=== PATIENT | female | born 1945 | race Caucasian/White ===

== ENCOUNTER 2023-07-05 17:09 | Emergency (ER) | payer OTHER, SELFPAY ==
[2023-07-05 17:09] VITALS: BMI 37.3
[2023-07-05 17:16] VITALS: BP 129/71
[2023-07-05 17:47] LABS: % Basophils 0.5 % (0-2); % Eosinophils 0.5 % (0-6); % Immature Granulocytes 0.3 % (0-0.5); % Lymphocytes 7.2 % (20.5-51.1); % Monocytes 5.5 % (1.7-9.3); Absolute Basophils 0.1 10^3/uL (0-0.2); Absolute Eosinophils 0.1 10^3/uL (0-0.7); Absolute Lymphocytes 0.8 10^3/uL (1.2-3.4); Absolute Monocytes 0.7 10^3/uL (0.1-0.6); Absolute Neutrophils 10.1 10^3/uL (1.4-6.5); Hematocrit 43.9 % (37.0-47.0); Hemoglobin 14.6 g/dL (12.0-16.0); Mean Corp Hgb Conc. 33.3 g/dL (33.0-37.0); Mean Corpuscular Hgb 29.8 pg (27.0-31.0); Mean Corpuscular Volume 89.6 fL (81.0-99.0); Mean Platelet Volume 10.3 fL (7.4-10.4); Nucleated Red Blood Cells % 0 %; Platelet Count 355 10^3/uL (130-400); Red Cell Dist. Width 14.1 % (11.5-14.5); White Blood Cell Count 11.7 10^3/uL (4.8-10.8)
[2023-07-05 17:59] LABS: ALT (SGPT) 17 U/L (0-35); AST (SGOT) 30 U/L (14-36); Albumin 3.6 g/dl (3.5-5.0); Alkaline Phosphatase 173 U/L (38-126); Blood Urea Nitrogen 17 mg/dl (7-17); Calcium 9.2 mg/dl (8.4-10.2); Carbon Dioxide 26 mmol/L (22-30); Chloride 102 mmol/L (98-107); Glucose 168 mg/dl (70-99); Lipase 115 U/L (23-300); Potassium 4.5 mmol/L (3.5-5.1); Sodium 136 mmol/L (135-145); Total Bilirubin 1.6 mg/dl (0.2-1.3); Total Protein 6.6 g/dl (6.3-8.2); eGFR > 60.00
[2023-07-05 20:09] VITALS: BP 141/75
[2023-07-05 21:00] VITALS: BP 122/79
--- NOTE | 2023-07-05 21:32 | ED.GENMED ---
Addendum entered and electronically signed by Niranjan Snider DO 07/06/23 02:35:
Update patient now awake states she still feels nauseous and weak, now she is wonder if she should have testing for COVID or flu although admittedly she states she would not take the treatment due to her prior history, she does have some family can
come and get her encouraged her to drink a lot of fluids use Tylenol at home
Original Note:
History of Present Illness
General
Chief Complaint: Abdominal Symptoms
Source: patient
Exam Limitations: none
Time Seen by Provider: 07/05/23 21:17
Nursing documentation reviewed up to this point in time: agreed with
Travel History
Have you had any contact with someone who has COVID-19?: No
Do you have any symptoms of coronavirus? Fever > 100 degrees, chills, cough, shortness of breath, sore throat, loss of taste or smell, muscle aches, or headache?: No
History of Present Illness
History of Present Illness:
Patient is very pleasant 77-year-old female history of Guillain Das� and asthma presents with fatigue nausea for about a week no fever no chills she is concerned she could have pneumonia, no dysuria frequency, has some increased global weakness, no
chest pain or shortness of breath she does not get COVID or flu shots, states she would not want to have a treatment for them, she has a history of DVT PE she is on Eliquis has not had her evening dose
Past History
Past History
ED Past Medical History: Hypercholesterolemia, Hypothyroidism and Other (Guillain-Das�, reactive airway disease)
ED Past Surgical History: Appendectomy, Cholecystectomy and Gynecological
Patient has exhibited threatening behavior?: No
PSI?: No
Social History
Tobacco: Non-smoker
Alcohol: None
Drug: None
Living: alone
Review of Systems
Review of Systems
All Other Systems: Not applicable
Constitutional: Reports fatigue; Denies fever
EENT: Reports no symptoms
Respiratory: Denies cough or trouble breathing
Cardiac: Denies chest pain
ABD/GI: Reports nausea; Denies abdominal pain
: Reports no symptoms
Musculoskeletal: Reports no symptoms
Skin: Reports no symptoms
Neurological: Reports weakness; Denies dizzy
Phy Exam
Physical Exam
Physical Exam:
Physical Exam
General: no apparent distress, not acutely ill
Neck: No jaundice
Heart: s1/s2 regular rate and rhythm, no murmur. equal radial pulses.
Lungs: No wheezing
Abdomen: Nontender
Neuro: alert and oriented. no focal neurological deficits
Skin: no rash
Psychiatric: well kept. interactive and cooperative
Extremities: no edema. no calf tenderness.
Course
Orders/Labs/Results
Orders:
Orders
07/05/23 17:19
EKG [Electrocardiogram (*1)] Urgent
Reason for Study: Fatigue / Weakness
EKG- Treatment ONCE
07/05/23 17:29
Complete Blood Count/With Diff Urgent
Comprehensive Metabolic Panel Urgent
Lipase Urgent
07/05/23 21:24
0.9% Sodium Chloride 500 ml [Nss] 500 ml IV BOLUS
Ondansetron Injectable [Zofran] 4 mg IV NOW STA
CR Chest - 2 Views Urgent
Comment:
Reason For Exam: faigutre
07/05/23 21:40
Troponin I Urgent
07/05/23 23:06
Ondansetron Injectable [Zofran] 4 mg IV NOW STA
Abnormal Lab Results
07/05/23
17:29
WBC 11.7 H 10^3/uL
(4.8-10.8)
Absolute Neuts (auto) 10.1 H 10^3/uL
(1.4-6.5)
Absolute Lymphs (auto) 0.8 L 10^3/uL
(1.2-3.4)
Absolute Monos (auto) 0.7 H 10^3/uL
(0.1-0.6)
Neutrophils % 86.0 H %
(42.2-75.2)
Lymphocytes % 7.2 L %
(20.5-51.1)
Glucose 168 H mg/dl
(70-99)
Total Bilirubin 1.6 H mg/dl
(0.2-1.3)
Alkaline Phosphatase 173 H U/L
(38-126)
07/05/23 17:29
07/05/23 17:29
Vital Signs
Initial and Last Documented VS:
Initial Vital Signs
Temp Pulse Resp BP Pulse Ox
99.2 F 91 22 129/71 97
07/05/23 17:16 07/05/23 17:16 07/05/23 17:16 07/05/23 17:16 07/05/23 17:16
Last Documented Vital Signs
Temp Pulse Resp BP Pulse Ox
99.2 F 91 22 115/67 96
07/05/23 17:16 07/05/23 17:16 07/05/23 17:16 07/06/23 00:00 07/06/23 00:00
MDM/Problems Addressed
Differential Diagnosis Includes:
Viral syndrome dehydration pneumonia
MDM/Problems Addressed:
Fatigue nausea
Chronic conditions affecting care:
Guillain-Das� unimmunized asthma DVT PE
*Critical Care Note
Total Time (30-74mins, 75-104mins- exclusive of procedures): Not Applicable
Update Note
Update Note:
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
1110, patient looks well labs noted states she still feels nauseous will redose her on Zofran give her some p.o. fluids
1:10 AM patient resting comfortably no acute distress
ED Attending Note
-
Portions of this chart may have been created with voice recognition software.� Occasional wrong word or��sound alike� substitutions may have occurred due to the inherent limitations of voice recognition software.
Discharge Plan
Departure
Patient Disposition: Home (Routine Discharge)
Date of Disposition: 07/06/23
Time of Disposition: 01:12
Patient with high blood pressure during this ER visit?: No
Condition: Good
Discharge Problem:
Nausea
Instructions: Nausea and Vomiting, Adult (DC), Wolfe Diet
Prescriptions:
No Action
atorvastatin 10 MG tablet
10 mg PO HS
levothyroxine 75 mcg tablet
75 mcg PO DAILY
cholecalciferol (vitamin D3) 25 mcg (1,000 unit) Tablet
25 mcg PO DAILY
Eliquis 5 MG tablet
5 mg PO BID
Rx Instructions:
Take 10mg twice a day through morning 06/15/21 then take 5mg twice a day starting evening 06/15/21
albuterol sulfate 90 mcg/actuation Hfa Aerosol Inhaler
2 puff INHALATION R Q6HPRN PRN (Reason: sob/wheezing)
torsemide 20 mg tablet
20 mg PO Q48H
potassium chloride 20 mEq tablet,ER particles/crystals
20 meq PO DAILY
prednisone 2.5 mg tablet
7.5 mg PO DAILY
acetaminophen 500 mg Tablet
1,000 mg PO Q6H PRN (Reason: mild pain/fever)
Referrals:
Tabatha White MD [Family Provider] - Next open appointment
Activity Restrictions/Additional Instructions:
Tylenol as needed for fever, Zofran as needed for nausea or vomiting
Interventions
Interventions:
*Risk Screen - Suicide Last Done: 07/05/23 17:14
*General Assessment Last Done: 07/05/23 17:14
*Neglect/Abuse Screening Last Done: 07/05/23 17:14
ED- Fall Risk Assessment Last Done: 07/05/23 20:23
*ED COVID-19 Vaccine History Last Done: 07/05/23 20:21
LX-Etjjry-Yxuufwyipg Assessment Last Done: 07/05/23 20:22
[2023-07-05] MEDS: NSS 500 IV (21:38)
[2023-07-05] MEDS: ZOFRAN 4 MG IV ×2 (21:39→23:34)
[2023-07-05 23:00] VITALS: BP 108/73
[2023-07-06] VITALS: BP 115/67
[2023-07-06 01:00] VITALS: BP 103/60
[2023-07-06 02:00] VITALS: BP 120/56
[2023-07-06 03:00] VITALS: BP 142/79
[2023-07-06 03:34] LABS: COVID-19 Antigen Negative (Negative)
== END 2023-07-06 03:33 | disposition home or self-care (01) ==
LOC: EMR 17:09
PROVIDERS: Emergency Medicine; EMERGENCY PHYSICIAN Emergency Medicine; FAMILY PHYSICIAN Internal Medicine
DX: R11.0 Nausea (principal); R53.83 Other fatigue; R53.1 Weakness; J45.909 Unspecified asthma, uncomplicated; Z11.52 Encounter for screening for COVID-19; Z86.718 Personal history of other venous thrombosis and embolism; Z79.01 Long term (current) use of anticoagulants
CPT/HCPCS: 99285; 96374; 96361; 96376; 71046; 80053; 83690; 84484; 85025; 87502; 87811; 93005

== ENCOUNTER 2023-07-10 17:10 | Inpatient (IN) | payer OTHER, SELFPAY ==
[2023-07-10] VITALS (9 sets, daily range): BP systolic 91–125; BP diastolic 51–64; BMI 36.2; BMI 36.8
--- NOTE | 2023-07-10 12:29 | ED.GENMED ---
History of Present Illness
General
Chief Complaint: Fainting Sensation
Source: patient
Time Seen by Provider: 07/10/23 12:19
Travel History
Have you had any contact with someone who has COVID-19?: No
Do you have any symptoms of coronavirus? Fever > 100 degrees, chills, cough, shortness of breath, sore throat, loss of taste or smell, muscle aches, or headache?: No
History of Present Illness
History of Present Illness:
77-year-old female presents complaining of poor appetite, generalized fatigue which has been present for the past couple weeks. Patient states she feels like she has just no energy to do anything. She denies any fever. She denies chest pain or
shortness of breath.
Past History
Past History
ED Past Medical History: Hypercholesterolemia, Hypothyroidism and Other (Guillain-Das�, reactive airway disease)
ED Past Surgical History: Appendectomy, Cholecystectomy and Gynecological
Patient has exhibited threatening behavior?: No
PSI?: No
Social History
Tobacco: Non-smoker
Alcohol: None
Drug: None
Living: alone
Phy Exam
Physical Exam
Physical Exam:
General: Awake, Alert, Oriented X3. No acute distress. Appears chronically ill
Vitals: Tachycardic
Head: Atraumatic
Eyes: Pupils equal, EOMI
Throat: Airway intact, no exudates
Neck: Trachea midline
Lungs: Clear and equal b/l
Heart: Regular rate, no murmurs
Abd: Soft, Nontender, No pulsatile mass
Neuro: nonfocal
Skin: Warm, dry, no rash
Extremities: pulses equal b/l, no edema
Course
Orders/Labs/Results
Orders:
Orders
07/10/23 12:27
0.9% Sodium Chloride 500 ml [Nss] 500 ml IV BOLUS
07/10/23 12:28
Urinalysis Reflex To Culture Urgent
07/10/23 12:54
Electrocardiogram (*1) Urgent
Reason for Study: Bradycardia / Tachycardia
EKG- Treatment ONCE
07/10/23 13:08
Diltiazem 125 mg/125 ml Nss [Cardizem] 125 mg in 125 ml IV NOW
Initial dose in mg/hr, then titrate:: 5
Titrate to keep:: Heart rate 80-100 bpm
Titrate by mg/hr:: 5 mg/hr
Frequency of titrations (minutes):: 15
Maximum dose in mg/hr:: 15
Diltiazem HCl [Cardizem] 15 mg IV NOW STA
CR Chest Portable - 1 View Urgent
Comment:
Reason For Exam: sob
Reason Study Needs to be Portable: Unable to Transport
07/10/23 13:14
Complete Blood Count/With Diff Urgent
07/10/23 14:00
Comprehensive Metabolic Panel Urgent
Magnesium Urgent
Phosphorus Urgent
TSH Reflex To Free T4 Urgent
07/10/23 14:11
Diltiazem HCl [Cardizem] 20 mg IV NOW STA
07/10/23 14:52
Electrocardiogram (*1) Urgent
Reason for Study: Bradycardia / Tachycardia
EKG- Treatment ONCE
07/10/23 15:06
Apixaban [Eliquis] 5 mg PO NOW STA
Abnormal Lab Results
07/10/23 07/10/23
13:14 14:00
Absolute Monos (auto) 1.3 H 10^3/uL
(0.1-0.6)
Monocytes % 14.6 H %
(1.7-9.3)
Sodium 132 L mmol/L
(135-145)
BUN 19 H mg/dl
(7-17)
Glucose 102 H mg/dl
(70-99)
Total Bilirubin 1.9 H mg/dl
(0.2-1.3)
Alkaline Phosphatase 147 H U/L
(38-126)
Total Protein 5.9 L g/dl
(6.3-8.2)
Albumin 2.9 L g/dl
(3.5-5.0)
07/10/23 13:14
07/10/23 14:00
Vital Signs
Initial and Last Documented VS:
Initial Vital Signs
Temp Pulse Resp BP Pulse Ox
98.0 F 109 18 125/61 99
07/10/23 11:37 07/10/23 11:37 07/10/23 11:37 07/10/23 11:37 07/10/23 11:37
Last Documented Vital Signs
Temp Pulse Resp BP Pulse Ox
98.0 F 84 18 99/59 98
07/10/23 11:37 07/10/23 15:41 07/10/23 11:37 07/10/23 15:41 07/10/23 15:41
MDM/Problems Addressed
Differential Diagnosis Includes:
Anemia, renal failure, dehydration
MDM/Problems Addressed:
Patient presents with near syncope and weakness. EKG shows the patient is in atrial fibrillation with rapid ventricular response. Her rate is quite fast over 200. Labs are unremarkable really. EKG appears to show episodes of wider QRS which I
believe is a rate related bundle branch block as again the patient's rate is irregular. Cardizem bolus is given with improvement in her rate. She continues to be in A-fib or a flutter with heart rates in the 130s. Cardiology consultation
requested. Patient remitted to the hospital service.
*Radiology
Radiology exam reviewed: radiology read reviewed
*Pulse Oximetry
Patient hypoxic: no
*EKG
Interpreted by ED Provider?: Yes
Interpretation: abnormal
Heart Rate: 206
Rate: tachycardiac
Rhythm: a-fib
Ischemia: non-specific ST changes
*Computational Linguist Interpretation
Rate: tachycardiac
Heart Rate: 206
Rhythm: a-fib
*Critical Care Note
Total Time (30-74mins, 75-104mins- exclusive of procedures): 35 min
comment:
Critical care statement: A total of 35 minutes of critical care time was provided for this patient. This includes management of unstable vital signs, evaluation of the patient at bedside, reviewing the patient's pertinent medical records, discussion
with consultants, review of old EKGs and review of pertinent medical records. This time with separate from time utilized to perform the aforementioned documented procedures
Data Reviewed
Further Testing Considered But Not Given:
Considered cardioversion but the patient was having periods of sinus rhythm between long periods of A-fib with rapid ventricular response. Therefore did not believe the patient would hold sinus rhythm if she did convert with electrical synchronized
cardioversion
ED Attending Note
-
Portions of this chart may have been created with voice recognition software.� Occasional wrong word or��sound alike� substitutions may have occurred due to the inherent limitations of voice recognition software.
Discharge Plan
Departure
Patient Disposition: Admit
Date of Disposition: 07/10/23
Time of Disposition: 15:52
Admit to: Telemetry
Presentation/result/management discussed w/ accepting MD/DO: Hospitalist
Condition: Fair
Discharge Problem:
Atrial fibrillation with RVR
Prescriptions:
No Action
atorvastatin 10 MG tablet
10 mg PO HS
levothyroxine 75 mcg tablet
75 mcg PO DAILY
cholecalciferol (vitamin D3) 25 mcg (1,000 unit) Tablet
25 mcg PO DAILY
Eliquis 5 MG tablet
5 mg PO BID
Rx Instructions:
Take 10mg twice a day through morning 06/15/21 then take 5mg twice a day starting evening 06/15/21
albuterol sulfate 90 mcg/actuation Hfa Aerosol Inhaler
2 puff INHALATION R Q6HPRN PRN (Reason: sob/wheezing)
torsemide 20 mg tablet
20 mg PO Q48H
potassium chloride 20 mEq tablet,ER particles/crystals
20 meq PO DAILY
prednisone 2.5 mg tablet
7.5 mg PO DAILY
acetaminophen 500 mg Tablet
1,000 mg PO Q6H PRN (Reason: mild pain/fever)
Referrals:
Tabatha White MD [Family Provider] -
Interventions
Interventions:
*Risk Screen - Suicide Last Done: 07/10/23 11:37
*General Assessment Last Done: 07/10/23 11:37
*Neglect/Abuse Screening Last Done: 07/10/23 11:37
*ED COVID-19 Vaccine History Last Done: 07/10/23 11:37
ED- Cardiac Assessment Last Done: 07/10/23 13:18
ED- Neurological Assessment Last Done: 07/10/23 13:18
[2023-07-10 13:25] LABS: % Basophils 0.6 % (0-2); % Eosinophils 1.1 % (0-6); % Immature Granulocytes 0.5 % (0-0.5); % Lymphocytes 22.3 % (20.5-51.1); % Monocytes 14.6 % (1.7-9.3); % Neutrophils 60.9 % (42.2-75.2); Absolute Basophils 0.1 10^3/uL (0-0.2); Absolute Eosinophils 0.1 10^3/uL (0-0.7); Absolute Monocytes 1.3 10^3/uL (0.1-0.6); Absolute Neutrophils 5.4 10^3/uL (1.4-6.5); Hematocrit 42.8 % (37.0-47.0); Hemoglobin 14.3 g/dL (12.0-16.0); Mean Corp Hgb Conc. 33.4 g/dL (33.0-37.0); Mean Corpuscular Hgb 29.9 pg (27.0-31.0); Mean Corpuscular Volume 89.5 fL (81.0-99.0); Nucleated Red Blood Cells % 0 %; Platelet Count 363 10^3/uL (130-400); Red Blood Cell Count 4.78 10^6/uL (4.20-5.40); Red Cell Dist. Width 13.7 % (11.5-14.5); White Blood Cell Count 8.8 10^3/uL (4.8-10.8)
[2023-07-10] MEDS: CARDIZEM 125 IV (13:26)
[2023-07-10] MEDS: CARDIZEM 15 MG IV (13:26)
[2023-07-10] MEDS: NSS 500 IV (13:31)
[2023-07-10] MEDS: CARDIZEM 20 MG IV (14:36)
--- NOTE | 2023-07-10 14:43 | PTCARENOTE ---
Pt found to be tachycardic. HR 140s - 200s. EKG obtained and resulted Atrial Fibrillation. Dr. Anglin at bedside. New order for Cardizem gtt with titration orders for maintain HR 80s - 100s. HR now 70s - 140s on shagger.
[2023-07-10 14:57] LABS: ALT (SGPT) 15 U/L (0-35); AST (SGOT) 32 U/L (14-36); Albumin 2.9 g/dl (3.5-5.0); Alkaline Phosphatase 147 U/L (38-126); Blood Urea Nitrogen 19 mg/dl (7-17); Calcium 8.7 mg/dl (8.4-10.2); Carbon Dioxide 25 mmol/L (22-30); Chloride 100 mmol/L (98-107); Estimated Creatinine Clearance 71 ml/min; Glucose 102 mg/dl (70-99); Magnesium 1.8 mg/dl (1.6-2.3); Phosphorus 3.1 mg/dl (2.5-4.5); Sodium 132 mmol/L (135-145); Total Bilirubin 1.9 mg/dl (0.2-1.3); Total Protein 5.9 g/dl (6.3-8.2); eGFR > 60.00
[2023-07-10 15:26] LABS: TSH Reflex To Free T4 1.92 uIU/ml (0.47-4.68)
--- NOTE | 2023-07-10 15:26 | CON.CAR ---
Addendum entered and electronically signed by Chinmay Mtz MD 07/10/23 16:47:
I saw and examined the patient.
The HUB LEAD's note was reviewed and I agree with the note.
Comment: 77 year old female (known to Dr. Varghese, her primary city magistrate), with HTN, HLD, chronic LE edema, prior PE, and NIDDM who presented with fatigue. She was seen in the ER 07/05/23 with weakness and nausea. Initial HRs were ~200, however,
with dilt gtt converted to NSR.
- cont dilt gtt overnight stop it tomorrow am at 6am and start dilt 180mg at 7 am
- Eliquis for AC
- she will likely have a non-ischemic myocardial injury 2/2 tachycardia, she is currently CP and has no symptoms
Original Note:
Consultation
Consultation Request
Date/Time Consultation Requested: 07/10/23 15:15
Date/Time Consultation Performed: 07/10/23 15:30
Requesting Provider: Dr. Anglin
Performing Provider: SARAH Dixon for Dr. Mtz
Reason for Consultation: Atrial fibrillation with RVR
Medical History
-
Chief Complaint: Fatigue
History of Present Illness:
Janette Morelos is a 77 year old female (known to Dr. Varghese, her primary city magistrate), with HTN, HLD, chronic LE edema, prior PE, and NIDDM who presented with fatigue. She was seen in the ER 07/05/23 with weakness and nausea. Influenza and COVID-19
were negative. She was hydrated and given Zofran and discharged home. She was in sinus rhythm at that time. She is currently in atrial fibrillation with rapid ventricular response. She denies chest pain and palpitations. She does endorse exertional
SOB at home. She appears to have a rate related LBBB.
Past Medical History
Past Medical History: Asthma, HTN, Hypercholesterolemia, NIDDM and Other (PE, RA, Guillain-[place], EBV)
Past Surgical History: Appendectomy, Cholecystectomy and Gynecological
Social History
Tobacco: Non-Smoker
Alcohol: None
Living: Alone
Employment: Retired
Family History
Family History: Reviewed & Not Pertinent
Allergies / Home Medications
Allergy/AdvReac Type Severity Reaction Status Date / Time
adhesive Allergy skin blows Verified 07/10/23 11:38
up
cephalexin monohydrate Allergy Vomiting Verified 07/10/23 11:38
[From Keflex]
iodine Allergy Swelling Verified 07/10/23 11:38
methotrexate Allergy Shortness Verified 07/10/23 11:38
of Breath
povidone-iodine Allergy Swelling Verified 07/10/23 11:38
shellfish derived Allergy Unknown Verified 07/10/23 11:38
Sulfa (Sulfonamide Allergy Unknown Verified 07/10/23 11:38
Antibiotics)
Medication Instructions Recorded Confirmed Type
atorvastatin 10 mg tablet 10 mg PO HS High cholesterol 07/19/15 07/05/23 History
albuterol sulfate 90 mcg/actuation 2 puff inhalation R Q6HPRN PRN 01/19/22 07/05/23 History
aerosol inhaler sob/wheezing
apixaban 5 mg tablet (Eliquis) 5 mg PO BID Blood clot 01/19/22 07/05/23 History
prevention/tx
cholecalciferol (vitamin D3) 25 25 mcg PO DAILY Supplement 01/19/22 07/05/23 History
mcg (1,000 unit) tablet
levothyroxine 75 mcg tablet 75 mcg PO DAILY Thyroid 01/19/22 07/05/23 History
acetaminophen 500 mg tablet 1,000 mg PO Q6H PRN mild pain/fever 07/05/23 07/05/23 History
potassium chloride 20 mEq 20 meq PO DAILY 07/05/23 07/05/23 History
tablet,extended release(part/cryst)
prednisone 2.5 mg tablet 7.5 mg PO DAILY 07/05/23 07/05/23 History
torsemide 20 mg tablet 20 mg PO Q48H 07/05/23 07/05/23 History
Review of Systems
-
History Source: Patient
All other systems: Negative unless noted
Constitutional: Fatigue
Respiratory: No Symptoms
Cardiac: No Symptoms
Abdomen/GI: No Symptoms
Physical Exam
Vital Signs
Temp Pulse Resp BP Pulse Ox
98.0 F 141 18 109/89 99
07/10/23 11:37 07/10/23 14:36 07/10/23 11:37 07/10/23 14:36 07/10/23 11:37
Lab Results
07/10/23 13:14
07/10/23 14:00
Physical Exam
General: Well Developed, Well Nourished, No Apparent Distress and Comfortable
HEENT: Normocephalic, Anicteric and Moist Mucous Membranes
Respiratory: Clear and Non Labored Respirations
Cardiac: S1/S2, Regular Rhythm and Peripheral Edema (trace ankle edema)
Breast: Deferred by me
GI: Soft, Non Tender, Non Distended and Normal Bowel Sounds
Rectal: Deferred by Provider
Genito-urinary: No Costovertebral Tender
Musculoskeletal: No Clubbing, No Cyanosis and No Edema
Skin: Dry
Neuro: AO x 3
Hematologic/Lymphatic: No Lymphadenopathy
Psych: Calm
Impression / Plan
-
Atrial fibrillation with RVR
-Back in sinus, she is going in and out of atrial fibrillation
-Oral Anticoagulation: Apixaban 5mg BID, she denies abnormal bleeding
-[id number]: score 5 (HTN, age 75 or more, Diabetes Mellitus, female gender)
-Hyperdynamic without valve disease on 2021 TTE, update
LBBB
-This appears to be rate related
LE edema, chronic, on Torsemide Q48H
Dyslipidemia, TC 153, HDL 56, LDL 72, TG 142
Type II DM, Hgba1c 5.8%
Prior PE, on apixaban
Obesity, BMI 36, she would benefit from weight loss
Data Reviewed
-
EKG: Report Reviewed by me (Atrial flutter with variable AV block, lateral T wave abnormality, rate 136)
Radiology: Report Reviewed by me (CXR: Increased right basilar atelectasis and/or pneumonia.)
Medical Tests (Nuc Med, Echo etc): Report Reviewed by me (Echocardiogram as above)
Labs: Labs Reviewed by me
Old Records: Reviewed
[2023-07-10] MEDS: ELIQUIS 5 MG PO (15:38)
--- NOTE | 2023-07-10 16:20 | HPS.HSE ---
Family Physician
-
Family Physician: Tabatha White
Chief Complaint
-
weakness
History of Present Illness
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 Symptoms have been lasting for the last
few weeks. Otherwise denies URI symptoms, fever, chills, chest pain, nausea, vomiting, shortness of breath. Vitals are 99/59, heart rate 84, initially 109 noted to have atrial flutter on EKG. Labs with sodium level of 132, bilirubin 1.9, alk phos
147. X-ray with increased right basilar atelectasis and/or pneumonia.
Medical History
Past Medical History
Past Medical History: Reports Other (see HPI)
Additional Past Medical History:
Guillain-Das�, COPD, arthritis, recurrent PE/DVT on chronic Eliquis 5 mg BID, hypothyroidism, HLD,
Past Surgical History: Reports Appendectomy, Cholecystectomy and Gynocological (hysterectomy)
Social History
Tobacco: Non-smoker
Alcohol: None
Living: Alone
Family History
Family History: Not pertinent
Allergies / Home Medications
Allergies reflects when Allergies were last updated in [facility].
Home Medications with original date entered in [facility]
Allergy/Medication List:
Allergies
Allergy/AdvReac Type Severity Reaction Status Date / Time
adhesive Allergy skin blows Verified 07/10/23 11:38
up
cephalexin monohydrate Allergy Vomiting Verified 07/10/23 11:38
[From Keflex]
iodine Allergy Swelling Verified 07/10/23 11:38
methotrexate Allergy Shortness Verified 07/10/23 11:38
of Breath
povidone-iodine Allergy Swelling Verified 07/10/23 11:38
shellfish derived Allergy Unknown Verified 07/10/23 11:38
Sulfa (Sulfonamide Allergy Unknown Verified 07/10/23 11:38
Antibiotics)
Home Medications
atorvastatin 10 mg tablet 10 mg PO HS High cholesterol 07/19/15
apixaban 5 mg tablet (Eliquis) 5 mg PO BID Blood clot prevention/tx 01/19/22
cholecalciferol (vitamin D3) 25 mcg (1,000 unit) tablet 25 mcg PO DAILY Supplement 01/19/22
levothyroxine 75 mcg tablet 75 mcg PO DAILY Thyroid 01/19/22
acetaminophen 500 mg tablet 1,000 mg PO Q6H PRN mild pain/fever 07/05/23
potassium chloride 20 mEq tablet,extended release(part/cryst) 20 meq PO DAILY 07/05/23
prednisone 2.5 mg tablet 7.5 mg PO DAILY 07/05/23
torsemide 20 mg tablet 20 mg PO Q48H@0800 07/05/23
Review of Systems
-
History Source: Patient
A 12 point ROS was completed and negative except as noted: Yes
Physical Exam
Vital Signs
Vital Signs
Temp Pulse Resp BP Pulse Ox
98.0 F 84 18 99/59 98
07/10/23 11:37 07/10/23 15:41 07/10/23 11:37 07/10/23 15:41 07/10/23 15:41
Physical Exam
General: Well Developed and Well Nourished
HEENT: NormoCephalic
Respiratory: Clear
Cardiac: S1/S2
GI: Non Tender
Musculoskeletal: No Clubbing
Skin: Warm
Neuro: Awake, Alert, Oriented and AO x 3
Hematologic/Lymphatic: No Lymphadenopathy
Psych: Calm
Laboratory Results
-
07/10/23 13:14
07/10/23 14:00
Laboratory Results
Total Bilirubin 1.9 mg/dl (0.2-1.3) H 07/10/23 14:00
AST 32 U/L (14-36) 07/10/23 14:00
ALT 15 U/L (0-35) 07/10/23 14:00
Alkaline Phosphatase 147 U/L (38-126) H 07/10/23 14:00
Data Reviewed
-
Diagnostic Radiology: Image Personally Visualized and interpreted and Report Reviewed by me
Lab Data: Labs Reviewed by me
Impression/Plan
-
IMPRESSION:
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 Noted to be in new onset A. Flutter on
EKG
PLAN:
# Atrial flutter
� Started on Cardizem, continue
� Switch to p.o. AV jef blockade as directed by cardiology
� Cardiology consulted
� Already on Eliquis, continue
� Follow-up troponins
� Follow-up TSH with reflex free T4
� Follow-up echo
#Weakness/lethargy
� Possibly secondary to atrial flutter
� Follow-up UA to ensure no evidence of UTI
� Follow-up TSH with reflex T4
� Follow-up SARS-CoV-2, influenza
#Hypothyroidism
Continue Synthroid
� Follow-up TFTs
#Arthritis, rheumatoid?
� On prednisone 7.5 mg daily, continue
� Should follow-up for taper outpatient
#Hyponatremia, mild
� Continue to monitor oh with resolution/resuscitation in setting of atrial flutter
#Transaminitis
� Follow complete abdominal ultrasound
� Low suspicion for acute intra-abdominal pathology
#Hyperlipidemia
#Hypertension
�Continue statin
� Continue torsemide
#DVT prophylaxis
� Eliquis
[2023-07-10 17:26] LABS: Troponin I 0.013 ng/ml
[2023-07-10 20:10] LABS: COVID-19 Antigen Negative (Negative)
[2023-07-10] MEDS: LIPITOR 10 MG PO (23:22)
[2023-07-11 00:05] LABS: Troponin I 0.015 ng/ml
--- NOTE | 2023-07-11 00:18 | PTCARENOTE ---
Pt rec'd at change of shift awake,alert no c/o pain. Sinus on telemetry with brief breaks to afib noted. Cardizem gtt continued at 5 mg/hr. Pt assisted oob to bsc where she passed moderate formed stool. troponin level drawn ,results pending. LAC
site painful to flush-removed.
call carroll placed within reach.
[2023-07-11 05:31] VITALS: BP 118/62
[2023-07-11 05:34] VITALS: BMI 36.8
[2023-07-11] MEDS: CARDIZEM CD 180 MG PO (05:59)
[2023-07-11] MEDS: SYNTHROID 75 MCG PO (06:03)
[2023-07-11 06:05] LABS: Hemoglobin 13.4 g/dL (12.0-16.0); Mean Corp Hgb Conc. 33.5 g/dL (33.0-37.0); Mean Corpuscular Volume 89.7 fL (81.0-99.0); Mean Platelet Volume 10.4 fL (7.4-10.4); Platelet Count 310 10^3/uL (130-400); Red Blood Cell Count 4.46 10^6/uL (4.20-5.40); Red Cell Dist. Width 13.8 % (11.5-14.5); White Blood Cell Count 9.2 10^3/uL (4.8-10.8)
--- NOTE | 2023-07-11 06:19 | PTCARENOTE ---
Pt reports having slept most of the night. Mostly sinus with some occ afib. po Cardizem given as ordered. Pt assisted oob to bsc then chair c/o feeling dizzy when in afib with rates 140, feeling better back in sinus.
[2023-07-11 06:27] LABS: Troponin I < 0.012 ng/ml
[2023-07-11 06:32] LABS: ALT (SGPT) 13 U/L (0-35); AST (SGOT) 28 U/L (14-36); Albumin 2.7 g/dl (3.5-5.0); Alkaline Phosphatase 142 U/L (38-126); Blood Urea Nitrogen 21 mg/dl (7-17); Calcium 8.7 mg/dl (8.4-10.2); Carbon Dioxide 22 mmol/L (22-30); Chloride 102 mmol/L (98-107); Estimated Creatinine Clearance 79 ml/min; Glucose 90 mg/dl (70-99); Magnesium 1.9 mg/dl (1.6-2.3); Potassium 4.3 mmol/L (3.5-5.1); Sodium 132 mmol/L (135-145); Total Bilirubin 1.9 mg/dl (0.2-1.3); Total Protein 5.5 g/dl (6.3-8.2); eGFR > 60.00
[2023-07-11 06:38] LABS: Urine Albumin 1+ (Neg - Trace); Urine Bilirubin 1+ (Negative); Urine Character Slightly Cloudy (Clear); Urine Color Yellow; Urine Glucose Negative (Negative); Urine Ketone 2+ (Negative); Urine Leukocyte 2+ (Negative); Urine Nitrite Positive (Negative); Urine Occult Blood 3+ (Negative); Urine Urobilinogen 3+ (Neg - 1+)
[2023-07-11 07:04] LABS: TSH Reflex To Free T4 1.66 uIU/ml (0.47-4.68)
[2023-07-11 07:07] VITALS: BP 107/74
[2023-07-11 07:39] LABS: Urine Mucus Many
[2023-07-11 07:40] LABS: Urine Amorphous Seen
[2023-07-11 07:43] LABS: Urine Bacteria Many (Negative)
[2023-07-11 07:47] LABS: Urine Triple Phosphate Crystal Seen
--- NOTE | 2023-07-11 08:15 | PTCARENOTE ---
Addendum entered by Madeline Salcido RN 07/11/23 11:45:
pt incontinent in chair, dark yellow urine, odorous. venus area excoriated. venus care performed.
Original Note:
pt received from previous RN, oriented, anxious. SR/Afib on the monitor. 2LNC, for patient comfort, 94% on RA. pt abdomen s/n, nausea at times w/ the afib. NPO for US Abd. pt states had BM yesterday. incontinent at times. PIV. see worklist for VS,
I&O, and assessment.
--- NOTE | 2023-07-11 08:23 | W.PN.CD ---
Today's Communication / Plan
-
Monitor as we convert from IV diltiazem to PO diltiazem.
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
Impression / Plan
-
Impression/Plan: 77 y/o female with COPD, HTN, HLD, chronic LE edema, PE and NIDDM admitted with new atrial fibrillation with RVR, converted to NSR
#Paroxysmal atrial fibrillation
-Currently in NSR.
-Rate control with diltiazem gtt, converted to diltiazem PO.
-CHADS2-Vasc = 5 (HTN, Age x2, DM, Female).
-Oral Anticoagulation: Apixaban 5mg BID.
#LBBB
-This appears to be rate related.
#LE edema
-Chronic, on Torsemide Q48H.
#Dyslipidemia
-Chronic, stable.
-TC 153, HDL 56, LDL 72, TG 142.
-Continue atorvastatin 10 mg daily.
#Type II DM
-Chronic, stable.
-Hgba1c 5.8%.
#Prior PE
-Apixaban.
#Obesity
-BMI 36
-She would benefit from weight loss (possibly GLP-1 analog).
Subjective/Interval History:
Converted to NSR.
Intermittent AF overnight on telemetry.
DATA:
TTE, 07/10/2023:
CONCLUSIONS
�Technically difficult study.
�Normal LV size and function with no regional wall motion abnormalities.
�Estimated ejection fraction of 60 to 65% by visual estimation.
�Mild concentric LVH.
�Normal-appearing RV size and function.
�No significant valvular disease.
�Compared to prior from January 19, 2022, new small to moderate pericardial
�effusion.
Physical Exam
Vital Signs/Labs
Vital Signs
Temp Pulse Resp BP Pulse Ox
36.4 C 97 18 118/62 96
07/11/23 07:07 07/11/23 07:07 07/11/23 07:07 07/11/23 05:31 07/11/23 07:07
07/09/23 07/10/23 07/11/23
11:59 11:59 11:59
Actual Weight 104.7 kg 103.5 kg
07/11/23 05:43
07/11/23 05:44
Magnesium 1.9 mg/dl (1.6-2.3) 07/11/23 05:44
LAB Results
07/10/23 07/10/23 07/10/23
16:51 18:41 23:31
Troponin I 0.013 Cancelled 0.015
07/11/23
05:43
Troponin I < 0.012
Physical Exam
Constitutional: No acute distress and Comfortable
EENT: Anicteric and Moist mucous membranes
Cardiovascular: Rhythm & rate is regular, JVD pressure is normal, Pedal edema present, S1S2 is normal and Murmur/rub/gallop absent
Respiratory: Respiratory effort normal, Lungs clear to auscul., Wheeze Absent, Crackles Absent and Rhonchi Absent
GI: Soft, Distention absent, Flat, Non tender and Normal bowel sounds
Neuro/Psych: AO x 3
Data Reviewed
-
Date of Service: July 11, 2023
Medical Decision Making: Reviewed Test Results, Independent Historian Assessment and Test Interpretation
EKG: Tracing Personally Visualized and interpreted and Report Reviewed by me
Echo: Tracing Personally Visualized and interpreted and Report Reviewed by me
X-Ray/CT/US/MRI/NUC/PET: Image Personally Visualized and interpreted and Report Reviewed by me
Labs: Labs Reviewed by me
Old Records: Reviewed
[2023-07-11] MEDS: VITAMIN D3 (cholecalciferol) 25 MCG PO (08:58)
[2023-07-11] MEDS: ELIQUIS 5 MG PO ×2 (08:58→19:56)
[2023-07-11] MEDS: DEMADEX 20 MG PO (08:58)
[2023-07-11] MEDS: DELTASONE 7.5 MG PO (08:58)
[2023-07-11] MEDS: KCL 20 MEQ PO (08:58)
[2023-07-11 10:17] LABS: Urine Albumin 1+ (Neg - Trace); Urine Bilirubin 2+ (Negative); Urine Character Very Cloudy (Clear); Urine Color Yellow; Urine Glucose Negative (Negative); Urine Ketone 2+ (Negative); Urine Leukocyte 2+ (Negative); Urine Nitrite Positive (Negative); Urine Occult Blood 2+ (Negative); Urine Specific Gravity 1.015 (<1.030); Urine Urobilinogen 4+ (Neg - 1+)
--- NOTE | 2023-07-11 10:30 | PTCARENOTE ---
pt back from US Abd, placed back to bed. straight cath'd per order, UA sent.
--- NOTE | 2023-07-11 10:38 | CM ---
Chart reviewed. Patient is independent of ADLS, lives at home in a 1st floor condo, 0 [address]SH[address], ambulates with a rollator. Patient is not current with VN, but is interested. Referral sent to [facility]. Recommended PT/OT evaluation. Plan is for the
patient to return home with [facility]. CM to follow
[2023-07-11 11:12] VITALS: BP 142/72
[2023-07-11 11:22] LABS: Urine Amorphous Seen; Urine Bacteria Many (Negative); Urine Mucus Moderate; Urine White Cell 50-60 /HPF (0-5)
[2023-07-11] MEDS: CARDIZEM CD 120 MG PO (13:01)
--- NOTE | 2023-07-11 13:06 | PTCARENOTE ---
incontinence care provided, OOB in chair. pt having frequent runs of Afib, HR 100-160s, Dr. Mtz aware. ordered Cardizem dose given.
[2023-07-11] MEDS: CARDIZEM 125 IV (15:04)
[2023-07-11 15:05] VITALS: BP 100/59
--- NOTE | 2023-07-11 15:56 | W.PN.HOSP.TC ---
Today's Communication/Plan
-
cardizem ggt, cardizem po
ceftriaxone, f/u cultures
Assessment / Plan
Assessment / Plan
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
reverted to sinus and now back to Afib with RVR.
# Atrial Fibrillation
� Started on Cardizem drip, refractory to Cardizem p.o.
� Increase Cardizem, and possibly add additional AV jef blockade if necessary
� Cardiology consulted
� Echo with EF 60 to 65%, mild concentric LVH
� Already on Eliquis, continue
� Troponins negative
� TSH normal
#Weakness/lethargy
� Possibly secondary to arrhythmia versus UTI
�Treat above, arrhythmia/UTI
#UTI
� Start ceftriaxone
� Follow cultures
#Hypothyroidism
Continue Synthroid
�TSH within normal notes
#Arthritis, rheumatoid?
� On prednisone 7.5 mg daily, continue
� Should follow-up for taper outpatient, has not followed up for many years
#Hyponatremia, mild
� Continue to monitor with resuscitation
#Transaminitis
�us unremarkable
� Low suspicion for acute intra-abdominal pathology
#Hyperlipidemia
#Hypertension
�Continue statin
� Continue torsemide
#DVT prophylaxis
� Eliquis
Anticipated Discharge: 24 - 48 hours
Subjective/Interval History
-
Date of Service: July 11, 2023
still in afib
Objective Data
-
Labs:
Laboratory Results
07/11/23 07/11/23
05:43 05:44
WBC 9.2
Hgb 13.4
Hct 40.0
Plt Count 310
Sodium 132 L
Potassium 4.3
Chloride 102
Carbon Dioxide 22
BUN 21 H
Creatinine 0.7
Glucose 90
Calcium 8.7
Total Bilirubin 1.9 H
AST 28
ALT 13
Alkaline Phosphatase 142 H
Vital Signs:
Vital Signs
Temp Pulse Resp BP Pulse Ox
97.6 F 92 16 100/59 98
07/11/23 15:17 07/11/23 15:17 07/11/23 15:17 07/11/23 15:05 07/11/23 15:17
I&O
07/10/23 07/11/23 07/12/23
06:59 06:59 06:59
Intake Total 5 / 5
Output Total 150 / 150 200 / 200
Balance -150 / -150 -195 / -195
Review of Systems
-
History Source: Patient
All other systems: Not reviewed unless documented
Physical Exam
-
General: Well Developed, Well Nourished, No Apparent Distress, Comfortable, Conversant and Obese; Negative Respiratory Distress
HEENT: Normocephalic, Atraumatic, Nose Appears Normal and Ears Appear Normal; Negative Oxygen
Respiratory: Clear to Auscultation and Non Labored Respirations; Negative Accessory Resp Muscle Use
Cardiac: Regular Rhythm and S1/S2
GI: Soft, Nontender, Nondistended and Normal Bowel Sounds
Skin: Warm and Dry
Neuro: Awake, Alert, Oriented, AO x 3 and No Motor Deficits
Psych: Calm and Intact Judgement/Insight
Data Reviewed
-
Diagnostic Radiology: Image personally visualized and interpreted and Report Reviewed by me
Ultrasound: Report Reviewed by me
Labs: Labs Reviewed by me
[2023-07-11] MEDS: ROCEPHIN 1000 MG IV (17:07)
[2023-07-11] MEDS: STERILE WATER FOR INJECTION 10 ML IV (17:07)
[2023-07-11 18:48] VITALS: BP 103/58
[2023-07-11] MEDS: LIPITOR 10 MG PO (22:49)
[2023-07-11 22:52] VITALS: BP 103/57
--- NOTE | 2023-07-11 23:56 | PTCARENOTE ---
Pt rec'd at beginning of shift in bed. in and out of afib. Cardizem gtt continued at 5 mg /hr. call carroll placed within reach.
[2023-07-12] VITALS (10 sets, daily range): BP systolic 87–134; BP diastolic 48–74; PULSE 74–75
[2023-07-12] MEDS: ZOFRAN 4 MG IV (02:02)
--- NOTE | 2023-07-12 02:11 | PTCARENOTE ---
Pt c/o nausea medicated with Zofran. Ht rate 120-130 Cardizem gtt increased to 10 mg/hr
[2023-07-12 05:40] LABS: Hematocrit 40.3 % (37.0-47.0); Hemoglobin 13.4 g/dL (12.0-16.0); Mean Corp Hgb Conc. 33.3 g/dL (33.0-37.0); Mean Corpuscular Hgb 29.8 pg (27.0-31.0); Mean Corpuscular Volume 89.6 fL (81.0-99.0); Mean Platelet Volume 11.1 fL (7.4-10.4); Platelet Count 329 10^3/uL (130-400); Red Cell Dist. Width 13.9 % (11.5-14.5); White Blood Cell Count 11.2 10^3/uL (4.8-10.8)
[2023-07-12 05:47] LABS: Blood Urea Nitrogen 24 mg/dl (7-17); Calcium 8.7 mg/dl (8.4-10.2); Carbon Dioxide 24 mmol/L (22-30); Chloride 101 mmol/L (98-107); Estimated Creatinine Clearance 69 ml/min; Glucose 129 mg/dl (70-99); Potassium 3.9 mmol/L (3.5-5.1); Sodium 131 mmol/L (135-145); eGFR > 60.00
[2023-07-12] MEDS: SYNTHROID 75 MCG PO (07:49)
[2023-07-12] MEDS: CARDIZEM 125 IV (07:52)
[2023-07-12] MEDS: VITAMIN D3 (cholecalciferol) 25 MCG PO (07:54)
[2023-07-12] MEDS: ELIQUIS 5 MG PO ×2 (07:55→20:01)
[2023-07-12] MEDS: CARDIZEM CD 300 MG PO (07:55)
[2023-07-12] MEDS: DELTASONE 7.5 MG PO (07:56)
[2023-07-12] MEDS: KCL PO (07:57)
--- NOTE | 2023-07-12 09:01 | PTCARENOTE ---
Assumed care of pt from night RN. Pt received asleep, but wakens easily to verbal. VSS, CM shows NSR 80's, Cardizem infusing at 10 mg/hr lowered to 5 mg/hr as pt in NSR. POX 98% on RA, o2 left off. She describes achiness throughout. Pt
requesting Purewick. Explained to pt that frequent use causes UTI's and since she already has one I feel it is contraindicated, and actually getting OOB to commode is much more advantageous in her healing and quicker recovery. Will continue to
monitor closely.
--- NOTE | 2023-07-12 11:43 | CM ---
Chart reviewed. Patient stated she was not feeling well today. Patient is independent of ADLS, lives alone in a [place] shelter community, [address], ambulates with a rollator, not current with VN. Patient is interested in VN, referral sent and
accepted to [facility]. Plan is for the patient to return home with [facility]. CM to follow
[2023-07-12] MEDS: MIRALAX 17 GRAMS PO (12:49)
--- NOTE | 2023-07-12 14:39 | W.PN.HOSP.TC ---
Today's Communication/Plan
-
cont cardizem
f/u cultures for UA - cont abx for UTI
Assessment / Plan
Assessment / Plan
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
reverted to sinus and now back to Afib with RVR.
# Atrial Fibrillation
� Started on Cardizem drip, refractory to Cardizem p.o.
� Stable on increased dose of Cardizem
� Cardiology consulted
� Echo with EF 60 to 65%, mild concentric LVH
� Already on Eliquis, continue
� Troponins negative
� TSH normal
#Weakness/lethargy
� Possibly secondary to arrhythmia versus UTI
�Treat above, arrhythmia/UTI
#UTI, Proteus Mirabilis
� Start ceftriaxone
� Follow cultures
#Hypothyroidism
Continue Synthroid
�TSH within normal limits
#Arthritis, rheumatoid?
� On prednisone 7.5 mg daily, continue
� Should follow-up for taper outpatient, has not followed up for many years
#Hyponatremia, mild
� Continue to monitor with resuscitation
#Transaminitis
�us unremarkable
� Low suspicion for acute intra-abdominal pathology
-no tenderness -f/u outpatient
#Hyperlipidemia
#Hypertension
�Continue statin
� Continue torsemide
#DVT prophylaxis
� Eliquis
Anticipated Discharge: 24 - 48 hours
Subjective/Interval History
-
Date of Service: July 12, 2023
Appears to be back in sinus
Objective Data
-
Labs:
Laboratory Results
07/12/23
04:25
WBC 11.2 H
Hgb 13.4
Hct 40.3
Plt Count 329
Sodium 131 L
Potassium 3.9
Chloride 101
Carbon Dioxide 24
BUN 24 H
Creatinine 0.8
Glucose 129 H
Calcium 8.7
Vital Signs:
Vital Signs
Temp Pulse Resp BP Pulse Ox
97.6 F 76 18 103/54 96
07/12/23 11:08 07/12/23 11:30 07/12/23 11:08 07/12/23 11:10 07/12/23 11:10
I&O
07/11/23 07/12/23 07/13/23
06:59 06:59 06:59
Intake Total 20 / 20
Output Total 150 / 150 600 / 600 150 / 150
Balance -150 / -150 -580 / -580 -150 / -150
Review of Systems
-
History Source: Patient
All other systems: Not reviewed unless documented
Physical Exam
-
General: Well Developed, Well Nourished, No Apparent Distress, Comfortable, Conversant and Obese; Negative Respiratory Distress
HEENT: Normocephalic, Atraumatic, Nose Appears Normal and Ears Appear Normal; Negative Oxygen
Respiratory: Clear to Auscultation and Non Labored Respirations; Negative Accessory Resp Muscle Use
Cardiac: Regular Rhythm and S1/S2
GI: Soft, Nontender, Nondistended and Normal Bowel Sounds
Skin: Warm and Dry
Neuro: Awake, Alert, Oriented, AO x 3 and No Motor Deficits
Psych: Calm and Intact Judgement/Insight
--- NOTE | 2023-07-12 15:16 | PTCARENOTE ---
Metamucil given as per MAR.
[2023-07-12] MEDS: STERILE WATER FOR INJECTION 10 ML IV (15:28)
[2023-07-12] MEDS: ROCEPHIN 1000 MG IV (15:28)
[2023-07-12] MEDS: LIPITOR 10 MG PO (20:01)
--- NOTE | 2023-07-12 23:59 | PTCARENOTE ---
Pt.flipping back and forth between A-fib in the 90's and NSR in 60's. Cardizem gtt decreased to 5 mg/hr. Current rate 65, NSR.
[2023-07-13] VITALS (7 sets, daily range): BP systolic 105–135; BP diastolic 43–98
[2023-07-13] MEDS: CARDIZEM 125 IV (00:05)
[2023-07-13 04:00] LABS: Hematocrit 37.5 % (37.0-47.0); Hemoglobin 12.6 g/dL (12.0-16.0); Mean Corp Hgb Conc. 33.6 g/dL (33.0-37.0); Mean Corpuscular Hgb 29.9 pg (27.0-31.0); Mean Corpuscular Volume 89.1 fL (81.0-99.0); Mean Platelet Volume 10.7 fL (7.4-10.4); Platelet Count 340 10^3/uL (130-400); Red Blood Cell Count 4.21 10^6/uL (4.20-5.40); Red Cell Dist. Width 13.7 % (11.5-14.5); White Blood Cell Count 11.7 10^3/uL (4.8-10.8)
[2023-07-13 04:25] LABS: ALT (SGPT) 15 U/L (0-35); AST (SGOT) 22 U/L (14-36); Albumin 2.7 g/dl (3.5-5.0); Alkaline Phosphatase 145 U/L (38-126); Blood Urea Nitrogen 26 mg/dl (7-17); Calcium 8.9 mg/dl (8.4-10.2); Carbon Dioxide 26 mmol/L (22-30); Chloride 98 mmol/L (98-107); Estimated Creatinine Clearance 69 ml/min; Glucose 113 mg/dl (70-99); Magnesium 1.7 mg/dl (1.6-2.3); Potassium 3.8 mmol/L (3.5-5.1); Sodium 132 mmol/L (135-145); Total Bilirubin 1.1 mg/dl (0.2-1.3); Total Protein 5.5 g/dl (6.3-8.2); eGFR > 60.00
[2023-07-13] MEDS: ZOFRAN 4 MG IV (06:15)
--- NOTE | 2023-07-13 08:06 | W.PN.CD ---
Today's Communication / Plan
-
- no new cardiac recommendations and I'll sign off
- MEDS: Diltiazem CD 300 po qd (new), apixaban 5 po BID, torsemide 20 qod, atorva 10, qd
- follow up: Dr. Gurinder Varghese 3 weeks (I sent note to his office through [employer])
- Echo in 2 weeks (I sent note to his office through [employer])
Impression / Plan
-
Impression/Plan: 77 y/o female with COPD, HTN, HLD, chronic LE edema, PE and NIDDM admitted with new atrial fibrillation with RVR, converted to NSR
#Paroxysmal atrial fibrillation
-Currently in NSR, frequent PACs, atrial bigeminy
-stop IV dilt and use po
-CHADS2-Vasc = 5 (HTN, Age x2, DM, Female).
-Oral Anticoagulation: Apixaban 5mg BID (already on board for h/o PE)
#Small to moderate pericardial effusion
#LBBB
-This appears to be rate related.
#LE edema
-Chronic, on Torsemide Q48H.
#Dyslipidemia
-Chronic, stable.
-TC 153, HDL 56, LDL 72, TG 142.
-Continue atorvastatin 10 mg daily.
#Type II DM
-Chronic, stable.
-Hgba1c 5.8%.
#Prior PE
-Apixaban.
#Obesity
-BMI 36
-She would benefit from weight loss (possibly GLP-1 analog).
#Dispo
- no new cardiac recommendations and I'll sign off
- MEDS: Diltiazem CD 300 po qd (new), apixaban 5 po BID, torsemide 20 qod, atorva 10, qd
- follow up: Dr. Gurinder Varghese 3 weeks (I sent note to his office through [employer])
- Echo in 2 weeks (I sent note to his office through [employer])
Subjective/Interval History:
No palpitations. Some nausea today and yesterday
DATA:
TTE, 07/10/2023:
CONCLUSIONS
�Technically difficult study.
�Normal LV size and function with no regional wall motion abnormalities.
�Estimated ejection fraction of 60 to 65% by visual estimation.
�Mild concentric LVH.
�Normal-appearing RV size and function.
�No significant valvular disease.
�Compared to prior from January 19, 2022, new small to moderate pericardial
�effusion.
Laboratory Data
07/13/23
03:24
Hgb 12.6
Creatinine 0.8
Generic Name Dose Route Start Last Admin
Trade Name Freq PRN Reason Stop Dose Admin
Diltiazem HCl 125 mg in 125 mls @ 0 mls/hr 07/11/23 15:00
Cardizem IV
PER PROTOCOL DUANE
Protocol
Per Protocol
Apixaban 5 mg 07/11/23 08:00
Apixaban (Eliquis) 5 Mg Tablet PO 08/08/23 07:59
BID UDANE
Atorvastatin Calcium 10 mg 07/10/23 22:00
Atorvastatin (Lipitor) 10 Mg Tablet PO 08/07/23 21:59
HS DUANE
Torsemide 20 mg 07/11/23 08:00
Torsemide 20 Mg Tablet PO 08/08/23 07:59
Q48H DUANE
Diltiazem HCl 300 mg 07/12/23 08:00
Diltiazem 300 Mg Extended Release (24 H) Capsule PO 08/09/23 07:59
DAILY DUANE
Physical Exam
Vital Signs/Labs
Vital Signs
Temp Pulse Resp BP Pulse Ox
36.3 C 71 20 105/43 99
07/13/23 07:30 07/13/23 03:18 07/13/23 07:30 07/13/23 03:18 07/13/23 07:30
07/13/23 03:24
07/13/23 03:24
Magnesium 1.7 mg/dl (1.6-2.3) 07/13/23 03:24
LAB Results
07/10/23 07/10/23 07/10/23
16:51 18:41 23:31
Troponin I 0.013 Cancelled 0.015
07/11/23
05:43
Troponin I < 0.012
Physical Exam
Constitutional: No acute distress
EENT: Anicteric and Moist mucous membranes
Cardiovascular: Pedal edema is absent, Systolic murmur absent, Diastolic murmur absent and Rhythm/rate is irregular
Respiratory: Respiratory effort normal
GI: Soft, Distention absent and Non tender
Neuro/Psych: Alert and Oriented
Other: Skin
Data Reviewed
-
Date of Service: July 13, 2023
EKG: Other (Tele shows SR with frequent PACs and atrial bigeminy)
[2023-07-13] MEDS: SYNTHROID 75 MCG PO (10:05)
[2023-07-13] MEDS: ELIQUIS 5 MG PO ×2 (10:06→19:20)
[2023-07-13] MEDS: CARDIZEM CD 300 MG PO (10:07)
[2023-07-13] MEDS: VITAMIN D3 (cholecalciferol) 25 MCG PO (10:08)
[2023-07-13] MEDS: KCL PO (10:08)
[2023-07-13] MEDS: MIRALAX 17 GRAMS PO (10:08)
[2023-07-13] MEDS: DEMADEX 20 MG PO (10:08)
[2023-07-13] MEDS: DELTASONE 7.5 MG PO (10:09)
--- NOTE | 2023-07-13 10:49 | PTCARENOTE ---
Received patient this morning sitting oob in the chair but did not tolerate for long and assisted back to bed. Used bedside commode to void and feels like she needs to move her bowels but was unable and is requesting a suppository. States she is
still feeling nauseated, received IV zofran from prior shift. IV cardizem infusing at 5mg/hr and given PO dose. TT to Dr. Zee re: his plan to d/c IV and continue PO cardizem according to his note today, however she is now back in AF with rates
110's-130's at rest. This was communicated to him and his plan is to still d/c IV cardizem and increase PO dose, awaiting orders. Dr. Bronson in to see the patient and updated.
--- NOTE | 2023-07-13 11:36 | CM ---
Chart reviewed. Patient is independent of ADLS, lives alone in a 1st floor condo in a [place]+ alf community, ambulates with a rollator, 0 ASHLY. PT/OT evaluation recommending SNF. [facility] with
[facility] patients top choice. Patient will need insurance authorization for SNF. Plan is for the patient to go to SNF when medically stable for discharge. CM to follow
--- NOTE | 2023-07-13 13:15 | PTCARENOTE ---
Assisted the patient oob to the chair. Was grossly incontinent of urine while lying in the bed. Encouraged to be oob and call for assistance to use commode. States she feels exhausted, call carroll within reach, will continue to monitor.
[2023-07-13] MEDS: DULCOLAX 10 MG RECTAL (14:23)
--- NOTE | 2023-07-13 15:42 | W.PN.HOSP.TC ---
Today's Communication/Plan
-
increase cardizem to 360mg daily
switch to cephalexin
Assessment / Plan
Assessment / Plan
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
reverted to sinus and now back to Afib with RVR.
# Atrial Fibrillation
� Started on Cardizem drip, refractory to Cardizem p.o.
� Increase to 360 mg daily Cardizem
� Cardiology consulted
� Echo with EF 60 to 65%, mild concentric LVH; small to moderate pericardial
� Already on Eliquis, continue
� Troponins negative
� TSH normal
#Weakness/lethargy
� Possibly secondary to arrhythmia versus UTI
�Treat above, arrhythmia/UTI
#UTI, Proteus Mirabilis
� switch to cephalexin - 5 days
#Hypothyroidism
Continue Synthroid
�TSH within normal limits
#Arthritis, rheumatoid?
� On prednisone 7.5 mg daily, continue
� Should follow-up for taper outpatient, has not followed up for many years
#Hyponatremia, mild
� Continue to monitor with resuscitation
#Transaminitis
�us unremarkable
� Low suspicion for acute intra-abdominal pathology
-no tenderness -f/u outpatient
#Hyperlipidemia
#Hypertension
�Continue statin
� Continue torsemide
#DVT prophylaxis
� Eliquis
Anticipated Discharge: 24 - 48 hours
Subjective/Interval History
-
Date of Service: July 13, 2023
Heart rates in 130s, complaining of nausea
Objective Data
-
Labs:
Laboratory Results
07/13/23
03:24
WBC 11.7 H
Hgb 12.6
Hct 37.5
Plt Count 340
Sodium 132 L
Potassium 3.8
Chloride 98
Carbon Dioxide 26
BUN 26 H
Creatinine 0.8
Glucose 113 H
Calcium 8.9
Total Bilirubin 1.1
AST 22
ALT 15
Alkaline Phosphatase 145 H
Vital Signs:
Vital Signs
Temp Pulse Resp BP Pulse Ox
97.2 F 90 20 111/60 97
07/13/23 12:00 07/13/23 12:03 07/13/23 12:00 07/13/23 12:03 07/13/23 12:00
I&O
07/12/23 07/13/23 07/14/23
06:59 06:59 06:59
Intake Total 20 / 20 480 / 480 340 / 340
Output Total 600 / 600 550 / 550 100 / 100
Balance -580 / -580 -70 / -70 240 / 240
Review of Systems
-
History Source: Patient
All other systems: Not reviewed unless documented
Data Reviewed
-
Diagnostic Radiology: Image personally visualized and interpreted and Report Reviewed by me
Ultrasound: Report Reviewed by me
Labs: Labs Reviewed by me
[2023-07-13] MEDS: OMNICEF 300 MG PO (19:20)
[2023-07-13] MEDS: LIPITOR 10 MG PO (22:44)
--- NOTE | 2023-07-14 00:10 | PTCARENOTE ---
pt received start of shift, HR SR 60s-80s. Pt in bed. Pt appears tired, states she feels exhausted from the day. Pt apprehensive about starting Omnicef. Pt educated on omnicef, appears slightly less anxious. Pt denies any palpitations, fluttering
in chest, SOB, or lightheadedness/dizziness at this time. Informed to notify RN if any changes, call carroll within reach.
[2023-07-14 04:16] VITALS: BP 113/39
[2023-07-14 04:44] LABS: Hematocrit 36.5 % (37.0-47.0); Hemoglobin 12.5 g/dL (12.0-16.0); Mean Corp Hgb Conc. 34.2 g/dL (33.0-37.0); Mean Corpuscular Hgb 30.1 pg (27.0-31.0); Mean Platelet Volume 10.2 fL (7.4-10.4); Platelet Count 311 10^3/uL (130-400); Red Blood Cell Count 4.15 10^6/uL (4.20-5.40); Red Cell Dist. Width 13.9 % (11.5-14.5); White Blood Cell Count 9.6 10^3/uL (4.8-10.8)
[2023-07-14 05:20] LABS: ALT (SGPT) 16 U/L (0-35); AST (SGOT) 23 U/L (14-36); Albumin 2.6 g/dl (3.5-5.0); Alkaline Phosphatase 136 U/L (38-126); Blood Urea Nitrogen 24 mg/dl (7-17); Calcium 8.5 mg/dl (8.4-10.2); Carbon Dioxide 26 mmol/L (22-30); Chloride 100 mmol/L (98-107); Estimated Creatinine Clearance 69 ml/min; Glucose 103 mg/dl (70-99); Potassium 3.9 mmol/L (3.5-5.1); Sodium 131 mmol/L (135-145); Total Bilirubin 1.1 mg/dl (0.2-1.3); Total Protein 5.4 g/dl (6.3-8.2); eGFR > 60.00
[2023-07-14 08:01] VITALS: BP 115/52
[2023-07-14] MEDS: CARDIZEM CD 300 MG PO (08:10)
[2023-07-14] MEDS: SYNTHROID 75 MCG PO (08:10)
[2023-07-14] MEDS: ELIQUIS 5 MG PO (08:11)
[2023-07-14] MEDS: KCL PO (09:46)
[2023-07-14] MEDS: DELTASONE 7.5 MG PO (09:46)
[2023-07-14] MEDS: OMNICEF 300 MG PO (09:46)
[2023-07-14] MEDS: MIRALAX PO (09:46)
[2023-07-14] MEDS: VITAMIN D3 (cholecalciferol) 25 MCG PO (09:47)
[2023-07-14] MEDS: FLUSH (NSS) 1 FLUSH IV (09:47)
--- NOTE | 2023-07-14 09:59 | CM ---
Chart reviewed. Patient is independent of ADLS, lives alone in a 1st floor condo, 0 ASHLY, ambulates with a rollator. PT/OT evaluation recommending SNF. [facility] accepted the patient and they have a bed available. Patient is agreeable to go.
Waiting on insurance authorization. Plan is for the patient to go to [facility]. CM to follow
[2023-07-14 10:03] LABS: COVID-19 Antigen Negative (Negative)
--- NOTE | 2023-07-14 10:42 | PTCARENOTE ---
Received patient this morning resting in bed. Patient seen by case packer and bed available at [facility] for SNF. Patient very happy with the choice of this facility. Await hospitalist assessment and insurance approval.
[2023-07-14 10:55] VITALS: BP 105/55
[2023-07-14 11:10] VITALS: BP 105/55; PULSE 72; O2SAT 96
[2023-07-14 11:57] VITALS: BP 111/41
--- NOTE | 2023-07-14 12:14 | W.PN.HOSP.TC ---
Addendum entered and electronically signed by Audie Carreno MD 07/14/23 16:13:
[id number]
Original Note:
Today's Communication/Plan
-
Cardizem
Echo in 2 weeks
Follow cardiology in 3 weeks
Follow-up PCP, rheumatology especially for weaning prednisone
Complete antibiotic course for UTI
Assessment / Plan
Assessment / Plan
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
reverted to sinus and now back to Afib with RVR.
# Atrial Fibrillation, paroxysmal
� Increase to 300 mg daily Cardizem - HR tolerating well
� Cardiology consulted
� Echo with EF 60 to 65%, mild concentric LVH; small to moderate pericardial
� Already on Eliquis, continue
� Troponins negative
� TSH normal
-F/u ECHO in 2 weeks
-F/u with Logistics Intern (Dr. Varghese) in 2 - 3 weeks
#Weakness/lethargy
� Possibly secondary to arrhythmia versus UTI
�Treat above, arrhythmia/UTI
#UTI, Proteus Mirabilis
� switch to cefdinir, patient does not want Keflex due to reaction-complete total 5 days of antibiotics
#Hypothyroidism
Continue Synthroid
�TSH within normal limits
#Arthritis, rheumatoid?
� On prednisone 7.5 mg daily, continue
� Should follow-up for taper outpatient rheumatology, has not followed up for many years
#Hyponatremia, mild
� Continue to monitor with resuscitation
�Free water restriction
� Follow-up BMP outpatient
#Transaminitis
�us unremarkable
� Low suspicion for acute intra-abdominal pathology
-no tenderness -f/u outpatient
#Obesity
� Weight loss education given
#Hyperlipidemia
#Hypertension
�Continue statin
� Continue torsemide
#DVT prophylaxis
� Eliquis
More than 30 minutes spent in discharge including
Final examination of the patient
Summarizing hospital stay
Instructions for continuing care to all relevant caregivers
Preparation of discharge records, prescriptions, and referral forms
Total time spent (35 in minutes):
Anticipated Discharge: Today
Subjective/Interval History
-
Date of Service: July 14, 2023
HR controlled on cardizem 300mg
Objective Data
-
Labs:
Laboratory Results
07/14/23
04:30
WBC 9.6
Hgb 12.5
Hct 36.5 L
Plt Count 311
Sodium 131 L
Potassium 3.9
Chloride 100
Carbon Dioxide 26
BUN 24 H
Creatinine 0.8
Glucose 103 H
Calcium 8.5
Total Bilirubin 1.1
AST 23
ALT 16
Alkaline Phosphatase 136 H
Vital Signs:
Vital Signs
Temp Pulse Resp BP Pulse Ox
97.9 F 79 20 115/52 95
07/14/23 11:56 07/14/23 08:01 07/14/23 11:56 07/14/23 08:01 07/14/23 11:56
I&O
07/13/23 07/14/23 07/15/23
06:59 06:59 06:59
Intake Total 480 / 480 340 / 340
Output Total 550 / 550 300 / 300 100 / 100
Balance -70 / -70 40 / 40 -100 / -100
Review of Systems
-
History Source: Patient
All other systems: Not reviewed unless documented
Physical Exam
-
General: Well Developed, Well Nourished, No Apparent Distress, Comfortable, Conversant and Obese; Negative Respiratory Distress
HEENT: Normocephalic, Atraumatic, Nose Appears Normal and Ears Appear Normal; Negative Oxygen
Respiratory: Clear to Auscultation and Non Labored Respirations; Negative Accessory Resp Muscle Use
Cardiac: Regular Rhythm and S1/S2
GI: Soft, Nontender, Nondistended and Normal Bowel Sounds
Skin: Warm and Dry
Neuro: Awake, Alert, Oriented, AO x 3 and No Motor Deficits
Psych: Calm and Intact Judgement/Insight
Data Reviewed
-
Diagnostic Radiology: Image personally visualized and interpreted and Report Reviewed by me
Ultrasound: Image personally visualized and interpreted and Report Reviewed by me
Labs: Labs Reviewed by me
--- NOTE | 2023-07-14 12:19 | W.DS.TRANS ---
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
-
Discharge Instructions:
Sleep Apnea Risk Intermediate
Discharge Diagnosis/Procedures
# Atrial Fibrillation
#UTI, Proteus Mirabilis
#Weakness
Diet Low Fat,Low Cholesterol,Restrict fluids to 48 oz
Blood Work bmp in 3-5 days with pcp
Instructions:
Stand-Alone Forms:
Changes to Home Medications: Yes
Discharge Medications:
DC Medications w/original date entered in [employer]
atorvastatin 10 mg tablet 10 mg PO HS High cholesterol 07/19/15
apixaban 5 mg tablet (Eliquis) 5 mg PO BID Blood clot prevention/tx 01/19/22
cholecalciferol (vitamin D3) 25 mcg (1,000 unit) tablet 25 mcg PO DAILY Supplement 01/19/22
levothyroxine 75 mcg tablet 75 mcg PO DAILY Thyroid 01/19/22
acetaminophen 500 mg tablet 1,000 mg PO Q6H PRN mild pain/fever 07/05/23
potassium chloride 20 mEq tablet,extended release(part/cryst) 20 meq PO DAILY Electrolyte Repletion 07/05/23
torsemide 20 mg tablet 20 mg PO Q48H@0800 Fluid Retention/Swelling 07/05/23
cefdinir 300 mg capsule 300 mg PO Q12 2 days #4 caps 07/14/23
diltiazem HCl 300 mg capsule,extended release 24 hr 300 mg PO DAILY 30 days #30 caps 07/14/23
prednisone 2.5 mg tablet 7.5 mg PO DAILY Anti-Inflammatory #0 tabs 07/14/23
Home Medication Changes
cefdinir 300 mg capsule 300 mg PO Q12 2 days #4 caps 07/14/23
diltiazem HCl 300 mg capsule,extended release 24 hr 300 mg PO DAILY 30 days #30 caps 07/14/23
Pending Results: No
--- NOTE | 2023-07-14 14:46 | PTCARENOTE ---
[facility] telephoned and report given. Patient discharged via wheel chair van to skilled care facility, belongings sent with the patient.
== END 2023-07-14 14:36 | DRG 309 ==
LOC: IVU 17:10
PROVIDERS: Nurse Practitioner Gerontology; ADMITTING PHYSICIAN Internal Medicine; CONSULT PHYSICIAN Internal Medicine Cardiovascular Disease; EMERGENCY PHYSICIAN Emergency Medicine; FAMILY PHYSICIAN Internal Medicine
DX: I48.0 Paroxysmal atrial fibrillation (principal); E87.1 Hypo-osmolality and hyponatremia; I5A Non-ischemic myocardial injury (non-traumatic); N39.0 Urinary tract infection, site not specified; J98.11 Atelectasis; I31.39 Other pericardial effusion (noninflammatory); R55 Syncope and collapse; I48.92 Unspecified atrial flutter; E03.9 Hypothyroidism, unspecified; E78.00 Pure hypercholesterolemia, unspecified; E11.9 Type 2 diabetes mellitus without complications; I44.7 Left bundle-branch block, unspecified; J44.9 Chronic obstructive pulmonary disease, unspecified; E66.9 Obesity, unspecified; R74.01 Elevation of levels of liver transaminase levels; M19.90 Unspecified osteoarthritis, unspecified site; B96.4 Proteus (mirabilis) (morganii) as the cause of diseases classified elsewhere; I10 Essential (primary) hypertension; Z79.890 Hormone replacement therapy; Z79.01 Long term (current) use of anticoagulants; Z79.52 Long term (current) use of systemic steroids; Z86.711 Personal history of pulmonary embolism; Z88.1 Allergy status to other antibiotic agents; Z91.041 Radiographic dye allergy status; Z88.2 Allergy status to sulfonamides; Z91.048 Other nonmedicinal substance allergy status; Z68.36 Body mass index [BMI] 36.0-36.9, adult; Z11.52 Encounter for screening for COVID-19
CPT/HCPCS: 71045; 76700; 80048; 80053; 81003; 81015; 83735; 84100; 84443; 84484; 85025; 85027; 87086; 87088; 87186; 87502; 87811; 93005; 93306; 96361; 96374; 96376; 97163; 97167; 97535; 99291